=== PATIENT | male | born 1995 | race Caucasian/White ===

== ENCOUNTER 2019-06-13 20:10 | Emergency (ER) | payer MEDICAID, OTHER ==
[~2019-06-13] VITALS: Ht 170.2 cm; Wt 83.6 kg
[~2019-06-13 20:10] MED LIST: IBUP-1542 PO
[2019-06-13 20:14] VITALS: Ht 170.2 cm; Wt 83.6 kg
[2019-06-13] MEDS ORDERED: LIDOCAINE 1% (MDV) 20 ML INJ SC ONE (22:30)
[2019-06-13] MEDS ORDERED: KETOROLAC 60 MG INJ IM STA (23:11)
[2019-06-14] VITALS: BP 135/78; PULSE 80; RESP 16
== END 2019-06-14 00:11 | disposition home or self-care (01) ==
LOC: FTE 20:10
DX: S62.336A Displaced fracture of neck of fifth metacarpal bone, right hand, initial encounter for closed fracture (principal); S62.334A Displaced fracture of neck of fourth metacarpal bone, right hand, initial encounter for closed fracture; W50.0XXA Accidental hit or strike by another person, initial encounter; Y92.9 Unspecified place or not applicable
CPT/HCPCS: 29125; 73110; 73130; 96372; J1885; Z7502; Z7610